=== PATIENT | female | born 1990 | race Caucasian/White ===

== ENCOUNTER → 2020-09-18 | Outpatient (REF) | payer OTHER ==
[2020-09-18 17:36] LABS: CHLAMYDIA DNA AMPLIFICATION NEGATIVE (NEGATIVE); GC DNA AMPLIFICATION NEGATIVE (NEGATIVE)
== END ==
LOC: M SFHCWAGY 14:53
PROVIDERS: ATTEND Nurse Practitioner Women's Health
DX: Z11.3 Encounter for screening for infections with a predominantly sexual mode of transmission (principal); Z12.4 Encounter for screening for malignant neoplasm of cervix; Z01.419 Encounter for gynecological examination (general) (routine) without abnormal findings

== ENCOUNTER 2020-09-27 13:57 | Emergency (ER) | payer OTHER ==
[~2020-09-27] VITALS: Ht 160 cm; Wt 79.0 kg
[2020-09-27] MEDS ORDERED: MULTTAB20 PO (14:07)
[2020-09-27] MEDS ORDERED: GI COCKTAIL 50ML BTL(HYOSCYAMINE/MAALOX/LIDOCAINE VISCOUS)(1:3:1) PO ONE (14:40)
[2020-09-27 14:53] LABS: BASO % 0.4 % (0.0-1.0); EOS # 0.2 10^3/uL (0.0-0.5); EOS % 1.9 % (0.0-3.0); HEMATOCRIT 38.9 % (36.0-47.0); HEMOGLOBIN 12.7 g/dl (12.0-15.5); LYMPH % 25.9 % (24.0-44.0); MEAN CORPUSCULAR HEMOGLOBIN 29.6 pg (27.0-33.0); MEAN CORPUSCULAR HGB CONC 32.6 g/dl (32.0-36.5); MEAN CORPUSCULAR VOLUME 90.7 fl (80.0-96.0); MONO # 0.3 10^3/uL (0.0-0.8); MONO % 4.3 % (2.0-8.0); NEUTROPHILS # 5.2 10^3/uL (1.5-8.5); NEUTROPHILS % 67.2 % (36.0-66.0); PLATELET COUNT, AUTOMATED 178 10^3/uL (150-450); RED BLOOD COUNT 4.29 10^6/uL (4.00-5.40); WHITE BLOOD COUNT 7.8 10^3/uL (4.0-10.0)
[2020-09-27 15:09] LABS: ALBUMIN 4.3 GM/DL (3.2-5.2); ALT/SGPT 18 U/L (12-78); BILIRUBIN,DIRECT 0.1 MG/DL (0.0-0.2); BILIRUBIN,TOTAL 0.6 MG/DL (0.2-1.0); CK-MB VALUE MASS < 1.0 NG/ML (<3.6); CPK CREATINE PHOSPHOKINASE 88 U/L (26-192); FREE T4 0.92 NG/DL (0.76-1.46); LIPASE 109 U/L (73-393); MB/CK RELATIVE INDEX 1.14 (< OR =4); TOTAL PROTEIN 7.4 GM/DL (6.4-8.2); TROPONIN I < 0.02 NG/ML (< 0.10)
--- NOTE | 2020-09-27 15:58 | REP ---
INDICATION: chest pain COMPARISON: None. TECHNIQUE: PA and lateral. FINDINGS: The mediastinum and cardiac silhouette are normal. The lung minor are clear and without acute consolidation, effusion, or pneumothorax. The skeletal structures are intact and normal. IMPRESSION: No acute cardiopulmonary process. <Electronically signed by Booker Lawson > 09/27/20 [id number]
--- NOTE | 2020-09-27 15:58 | REP ---
INDICATION: dizziness, blurred vision, r arm tingling COMPARISON: None. TECHNIQUE: Axial noncontrast images from the skull base to the vertex with coronal reformations. This CT examination was performed using the following dose reduction techniques: Automated exposure control, adjustment of mA and/or kv according to the patient's size, and use of iterative reconstruction technique. FINDINGS: The ventricles, sulci, and cisterns are normal in position and appearance. Larsen-white differentiation is maintained. No acute intracranial hemorrhage, mass/mass effect, pathology or trauma/injury. No evidence for acute infarction. No extra-axial fluid collection. Calvarium is intact. Paranasal sinuses and mastoid air cells are clear. IMPRESSION: Normal noncontrast head CT. No evidence for acute intracranial pathology or trauma/injury. <Electronically signed by Booker Lawson > 09/27/20 [id number]
--- NOTE | 2020-09-27 15:59 | REP ---
INDICATION: dizziness, blurred vision, r arm tingling COMPARISON: None. TECHNIQUE: Axial noncontrast images from the skull base to the thoracic inlet with coronal and sagittal re-formations This CT examination was performed using the following dose reduction techniques: Automated exposure control, adjustment of mA and/or kv according to the patient's size, and use of iterative reconstruction technique. FINDINGS: Normal alignment and lordosis is maintained. Cervical vertebral bodies including transverse processes and spinous processes are intact and there is no evidence for acute fracture / compression injury or subluxation. Spinal canal is patent. Posterior elements are intact. Paravertebral soft tissues are normal. IMPRESSION: Normal noncontrast cervical spine CT. No evidence for acute pathology or trauma/injury. <Electronically signed by Booker Lawson > 09/27/20 [id number]
[2020-09-27 16:33] VITALS: BP 124/65
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
== END 2020-09-27 16:40 | disposition home or self-care (01) ==
LOC: M ED 13:57
DX: R10.13 Epigastric pain (principal); R42 Dizziness and giddiness; R20.2 Paresthesia of skin; R10.31 Right lower quadrant pain; R06.02 Shortness of breath; K21.9 Gastro-esophageal reflux disease without esophagitis

== ENCOUNTER → 2020-12-02 | Outpatient (CLI) | payer OTHER ==
[~2020-12-02] MED LIST: MULTTAB20 PO
== END ==
LOC: M PLALAB 15:18
PROVIDERS: ATTEND Advanced Practice Midwife
DX: Z00.00 Encounter for general adult medical examination without abnormal findings (principal)

== ENCOUNTER → 2020-12-05 | Outpatient (CLI) | payer OTHER | LOC: M PLALAB 11:19 | PROVIDERS: ATTEND Advanced Practice Midwife | DX: O36.80X0 Pregnancy with inconclusive fetal viability, not applicable or unspecified (principal) ==

== ENCOUNTER → 2020-12-16 | Outpatient (CLI) | payer OTHER ==
[~2020-12-16] MED LIST changes: +ACET1TAB55 PO; +CYTO1TAB2 PO; +MISO200T56 VG; +PREN29CH2 PO
== END ==
LOC: M PLALAB 13:55
PROVIDERS: ATTEND Advanced Practice Midwife
DX: O03.9 Complete or unspecified spontaneous abortion without complication (principal)

== ENCOUNTER 2020-12-18 05:34 | Day surgery (SDC) | payer OTHER ==
[~2020-12-18] VITALS: Ht 160 cm; Wt 78.5 kg
[~2020-12-18 05:34] MED LIST changes: -ACET1TAB55 PO; -CYTO1TAB2 PO; -MISO200T56 VG; -PREN29CH2 PO
[2020-12-18] MEDS ORDERED: CYTO1TAB2 PO (05:44)
[2020-12-18] MEDS ORDERED: ONDANSETRON 4MG/2ML VIAL IV ONE (06:20)
[2020-12-18] MEDS ORDERED: MORPHINE 4 MG/ML 1ML VIAL/SYRINGE (J2270) IV ONE (06:20)
[2020-12-18] MEDS ORDERED: NS 1,000 ML IV ONE (06:20)
[2020-12-18 06:22] LABS: BASO % 0.3 % (0.0-1.0); EOS # 0.1 10^3/uL (0.0-0.5); EOS % 0.8 % (0.0-3.0); HEMATOCRIT 36.7 % (36.0-47.0); HEMOGLOBIN 12.1 g/dl (12.0-15.5); LYMPH # 1.3 10^3/uL (1.5-5.0); MEAN CORPUSCULAR HEMOGLOBIN 29.8 pg (27.0-33.0); MEAN CORPUSCULAR VOLUME 90.4 fl (80.0-96.0); MONO # 0.3 10^3/uL (0.0-0.8); MONO % 3.3 % (2.0-8.0); NEUTROPHILS # 6.2 10^3/uL (1.5-8.5); NEUTROPHILS % 78.3 % (36.0-66.0); PLATELET COUNT, AUTOMATED 182 10^3/uL (150-450); RED BLOOD COUNT 4.06 10^6/uL (4.00-5.40); WHITE BLOOD COUNT 7.9 10^3/uL (4.0-10.0)
[2020-12-18 07:13] LABS: ALT/SGPT 21 U/L (12-78); BILIRUBIN,DIRECT < 0.1 MG/DL (0.0-0.2); BILIRUBIN,TOTAL 0.3 MG/DL (0.2-1.0); HCG, SERUM QUANTITATIVE 36231 MIU/ML; LIPASE 106 U/L (73-393); TOTAL PROTEIN 7.6 GM/DL (6.4-8.2)
--- NOTE | 2020-12-18 08:51 | REPVR ---
PROCEDURE INFORMATION: Exam: US First Trimester, Transabdominal and US Duplex Artery or Vein, Ovaries, Limited Exam date and time: 12/18/2020 6:51 AM Age: 30 years old Clinical indication: Pain; Other: Vag bleeding; Gestational age or lmp: 8wks; ; Additional info: Vaginal bleeding TECHNIQUE: Imaging protocol: Real-time transabdominal obstetrical ultrasound of the maternal pelvis and a first trimester , less than 14 weeks 0 days, with image documentation. Real-time duplex ultrasound scan of the arterial or venous flow of the ovaries with B-mode, color Doppler flow and spectral waveform analysis, limited Duplex. COMPARISON: No relevant prior studies available. FINDINGS: Gestation: Single intrauterine gestational sac. Embryonic/ heart rate: No heart tones identified. Extra-embryonic membranes/Placenta: No demonstrated subchorionic hemorrhage. BIOMETRY: Gestational age (AUA): pole with crown lump length of 15.59 mm, corresponding to an estimated gestational age of 8 weeks 0 days. MATERNAL: Uterus: The uterus measures 11.9 x 5.7 x 7.3 cm. It is anteverted. Cervix: Not fully visualized or measured. Right adnexa: The right ovary measures 3.0 x 0.9 x 2.4 cm and appears unremarkable. There is internal arterial flow to the ovary. Peak systolic velocity 6.1 cm/s, end-diastolic velocity 2.9 cm/s, resistive index 0.53. Left adnexa: The left ovary measures 4.4 x 3.4 x 3.4 cm. It contains 2 mildly complex cysts measuring 2.5 x 2.3 x 1.8 cm and 3.0 x 2.3 x 2.6 cm. There is internal arterial flow to the ovary. Peak systolic velocity 24.5 cm/s, end-diastolic velocity 12.9 cm/s, resistive index 0.47. Intraperitoneal space: No demonstrated free fluid. IMPRESSION: 1. Single intrauterine gestation with estimated gestational age of 8 weeks 0 days. No heart tones identified, compatible with demise. 2. Two mildly complex left ovarian cysts, measuring up to 2.5 cm and 3.0 cm. 3. Internal arterial flow to both ovaries. Electronically signed by: Talib Tompkins On 12/18/2020 08:51:05 AM
[2020-12-18] MEDS ORDERED: MORPHINE 2 MG/ML 1ML VIAL (J2270) IV ONE (09:00)
[2020-12-18] MEDS ORDERED: ACET1TAB55 PO (10:14)
[2020-12-18] MEDS ORDERED: PREN29CH2 PO (10:14)
[2020-12-18] MEDS ORDERED: MISO200T56 VG (10:14)
[2020-12-18] MEDS ORDERED: DOXYCYCLINE HYCLATE 100MG TABLET PO ONE (11:00)
[2020-12-18] MEDS ORDERED: KETOROLAC 30 MG/ML 1ML VIAL IV ONE (11:10)
[2020-12-18] MEDS ORDERED: propofoL 200 MG/20 ML VIAL As Ordered ONE (15:13)
[2020-12-18] MEDS ORDERED: fentaNYL 100 MCG/2 ML INJECTION (J3010) As Ordered ONE (15:13)
[2020-12-18] MEDS ORDERED: LIDOCAINE 2% 100MG/5ML SDV (FOR ANES.) As Ordered ONE (15:13)
[2020-12-18] MEDS ORDERED: MIDAZOLAM INJ 2MG/2ML VIAL (J2250 PER 1MG) As Ordered ONE (15:14)
--- NOTE | 2020-12-18 16:30 | ROOPDOC ---
[facility] Report Of Operation Report of Operation DATE OF PROCEDURE: 12/18/20 PREOPERATIVE DIAGNOSIS: Intrauterine embryonic demise. POSTOPERATIVE DIAGNOSES: Intrauterine embryonic demise. PROCEDURE PERFORMED: Dilation with suction and sharp curettage. SURGEON: Josie Howell MD RN VASCULAR: None. ANESTHESIA: [General]. ESTIMATED BLOOD LOSS [100] mL. INTRAVENOUS FLUIDS: 800 mL. URINE OUTPUT: Not obtained. PREOPERATIVE ANTIBIOTICS: 200 mg of doxycycline. OPERATIVE FINDINGS: Moderate amounts of tissue obtained with suction curetting. SPECIMENS: Intrauterine contents. DESCRIPTION OF OPERATION: After informed consent was obtained and written consent was reviewed, the patient was brought to the operating room where she was placed under general anesthesia. She was then placed in lithotomy position and was prepped and draped in a normal sterile fashion. A time-out in the operating room was then performed identifying the patient, procedure to be performed as well as drug allergies. A bivalve speculum was then placed revealing the cervix. The anterior lip of the cervix was grasped with a single-tooth tenaculum. The uterus then sounded to [10] cm. The uterus was then sequentially dilated using Hanks dilators. A #[10] curved curette was then advanced through the cervical os to the level of the fundus. It was attached to suction, suction was deployed, and the uterus was curetted in a 360-degree fashion with three passes with moderate amounts of tissue obtained. Sharp curette was then advanced through the cervical, and the uterus was sharply curetted in a 360-degree fashion. A final pass with the suction curette was performed productive of just minimum amounts of blood. Instruments were then removed from the patient's vagina. Single-tooth tenaculum was removed. Tenaculum sites were noted to be hemostatic. Speculum was removed. The patient was then taken out of the lithotomy position and was awakened from anesthesia and taken to recovery in stable condition. Counts were correct. JOSIE HOWELL MD. Dec 18, 2020 16:30
[2020-12-18] MEDS ORDERED: KETOROLAC 60MG 2ML VIAL As Ordered ONE (16:40)
[2020-12-18] MEDS ORDERED: ACETAMINOPHEN 1000MG 100ML IV BTL (OFIRMEV) (J0131 PER 10MG) As Ordered ONE (16:40)
[2020-12-18] MEDS ORDERED: METOCLOPRAMIDE INJ 10MG/2ML VIAL (J2765 PER 1) As Ordered ONE (16:40)
[2020-12-18] MEDS ORDERED: ONDANSETRON 4MG/2ML VIAL As Ordered ONE (16:40)
[2020-12-18] MEDS ORDERED: dexameTHASONE 4 MG/ML 1ML VIAL (J1100 PER 1MG) As Ordered ONE (16:40)
[2020-12-18] MEDS ORDERED: KETOROLAC 30 MG/ML 1ML VIAL IV PRN (16:51)
[2020-12-18] MEDS ORDERED: ONDANSETRON 4MG/2ML VIAL IV PRN (17:55)
[2020-12-18] MEDS ORDERED: oxyCODONE 5MG TAB PO PRN (17:55)
[2020-12-18] MEDS ORDERED: LR 1,000 ML IV SCH (17:55)
[2020-12-18] MEDS ORDERED: MEPERIDINE INJ 25 MG/ML VIAL (J2175) IV PRN (17:55)
[2020-12-18] MEDS ORDERED: fentaNYL 100 MCG/2 ML INJECTION (J3010) IV PRN (17:55)
[2020-12-18 18:35] VITALS: BP 107/60
[2020-12-18] MEDS ORDERED: KETOROLAC 30 MG/ML 1ML VIAL IV SCH (22:50)
== END 2020-12-18 18:35 | disposition home or self-care (01) ==
LOC: M ED 05:34 → M SDC 10:27
PROVIDERS: ATTEND Social Worker
DX: O02.1 Missed abortion (principal); N83.292 Other ovarian cyst, left side; Z88.0 Allergy status to penicillin
CPT/HCPCS: 59820; 76801; 80047; 80076; 83690; 84702; 85025; 86850; 86900; 86901; 88305; 93041; 93976; 96361; 96374; 96375; 96376; 99285; J0131; J1100; J1885; J2250; J2270; J2405; J2765; J3010; U0002

== ENCOUNTER → 2021-05-26 | Outpatient (CLI) | payer OTHER ==
[~2021-05-26] MED LIST changes: +ACET1TAB55 PO; +CYTO1TAB2 PO; +MISO200T56 VG; +PREN29CH2 PO
== END ==
LOC: M PLALAB 14:28
PROVIDERS: ATTEND Advanced Practice Midwife
DX: O20.0 Threatened abortion (principal)

== ENCOUNTER → 2021-05-28 | Outpatient (CLI) | payer OTHER | LOC: M PLALAB 12:46 | PROVIDERS: ATTEND Advanced Practice Midwife | DX: O20.0 Threatened abortion (principal) ==

== ENCOUNTER → 2021-07-07 | Outpatient (CLI) | payer OTHER | LOC: M PLALAB 13:20 | PROVIDERS: ATTEND Advanced Practice Midwife | DX: O34.211 Maternal care for low transverse scar from previous cesarean delivery (principal) ==

== ENCOUNTER 2021-07-10 16:46 | Emergency (ER) | payer OTHER ==
[~2021-07-10] VITALS: Ht 160 cm; Wt 86.6 kg
[2021-07-10 18:44] LABS: BASO % 0.2 % (0.0-1.0); EOS # 0.1 10^3/uL (0.0-0.5); EOS % 1.2 % (0.0-3.0); HEMATOCRIT 37.2 % (36.0-47.0); HEMOGLOBIN 12.5 g/dl (12.0-15.5); LYMPH # 1.8 10^3/uL (1.5-5.0); MEAN CORPUSCULAR HEMOGLOBIN 29.3 pg (27.0-33.0); MEAN CORPUSCULAR HGB CONC 33.6 g/dl (32.0-36.5); MEAN CORPUSCULAR VOLUME 87.1 fl (80.0-96.0); MONO # 0.3 10^3/uL (0.0-0.8); MONO % 3.7 % (2.0-8.0); NEUTROPHILS # 6.6 10^3/uL (1.5-8.5); NEUTROPHILS % 74.6 % (36.0-66.0); PLATELET COUNT, AUTOMATED 192 10^3/uL (150-450); RED BLOOD COUNT 4.27 10^6/uL (4.00-5.40); WHITE BLOOD COUNT 8.9 10^3/uL (4.0-10.0)
[2021-07-10 19:21] LABS: APPEARANCE, URINE HAZY (CLEAR); BACTERIA, URINE AUTO NEGATIVE (NEGATIVE); BILIRUBIN, URINE AUTO NEGATIVE (NEGATIVE); BLOOD, URINE BLOOD NEGATIVE (NEGATIVE); COLOR, URINE YELLOW (YELLOW); GLUCOSE, URINE (UA) AUTO NEGATIVE (NEGATIVE); KETONE, URINE AUTO NEGATIVE (NEGATIVE); LEUKOCYTE ESTERASE, URINE AUTO NEGATIVE (NEGATIVE); MUCUS, URINE SMALL (NEGATIVE); NITRITE, URINE AUTO NEGATIVE (NEGATIVE); PROTEIN, URINE AUTO NEGATIVE (NEGATIVE); RBC, URINE AUTO 0 /HPF (0-3); SPECIFIC GRAVITY URINE AUTO 1.027 (1.002-1.035); SQUAMOUS EPITHELIAL CELL UR AU 9 /HPF (0-6); UROBILINOGEN, URINE AUTO 0.2 mg/dL (0.0-2.0); WBC, URINE AUTO 0 /HPF (0-3)
[2021-07-10] MEDS ORDERED: ONDANSETRON 4MG/2ML VIAL IV ONE (19:35)
[2021-07-10] MEDS ORDERED: ACETAMINOPHEN 325 MG TAB PO ONE (19:35)
[2021-07-10 19:57] LABS: ALBUMIN 3.6 GM/DL (3.2-5.2); ALT/SGPT 20 U/L (12-78); BILIRUBIN,DIRECT < 0.1 MG/DL (0.0-0.2); BILIRUBIN,TOTAL 0.3 MG/DL (0.2-1.0); HCG, SERUM QUANTITATIVE 47976 MIU/ML; LIPASE 118 U/L (73-393); TOTAL PROTEIN 7.7 GM/DL (6.4-8.2)
[2021-07-10] MEDS ORDERED: KETOROLAC 30 MG/ML 1ML VIAL IV ONE (20:35)
[2021-07-10 20:39] VITALS: BP 128/64
== END 2021-07-10 20:48 | disposition home or self-care (01) ==
LOC: M ED 16:46
DX: O34.81 Maternal care for other abnormalities of pelvic organs, first trimester (principal); N83.292 Other ovarian cyst, left side; O21.9 Vomiting of pregnancy, unspecified; Z3A.13 13 weeks gestation of pregnancy; Z88.0 Allergy status to penicillin
CPT/HCPCS: 76775; 76801; 80047; 80076; 81001; 83690; 84702; 85025; 87086; 96374; 96375; 99284; J1885; J2405

== ENCOUNTER → 2021-07-14 | Outpatient (CLI) | payer OTHER | LOC: M PLALAB 10:10 | PROVIDERS: ATTEND Obstetrics & Gynecology | DX: Z34.81 Encounter for supervision of other normal pregnancy, first trimester (principal) ==

== ENCOUNTER → 2021-09-01 | Outpatient (CLI) | payer OTHER | LOC: M WHC 08:36 | PROVIDERS: ATTEND Obstetrics & Gynecology | DX: Z34.92 Encounter for supervision of normal pregnancy, unspecified, second trimester (principal) ==

== ENCOUNTER → 2021-10-07 | Outpatient (CLI) | payer OTHER | LOC: M WHC 13:04 | PROVIDERS: ATTEND Advanced Practice Midwife | DX: O34.211 Maternal care for low transverse scar from previous cesarean delivery (principal) ==

== ENCOUNTER → 2021-10-22 | Outpatient (CLI) | payer OTHER | LOC: M WHC 09:38 | PROVIDERS: ATTEND Advanced Practice Midwife | DX: O34.211 Maternal care for low transverse scar from previous cesarean delivery (principal) ==

== ENCOUNTER → 2021-10-28 | Outpatient (CLI) | payer OTHER ==
[2021-10-28 13:26] LABS: HEMATOCRIT 32.5 % (36.0-47.0); HEMOGLOBIN 10.5 g/dl (12.0-15.5); MEAN CORPUSCULAR HEMOGLOBIN 29.4 pg (27.0-33.0); MEAN CORPUSCULAR HGB CONC 32.3 g/dl (32.0-36.5); PLATELET COUNT, AUTOMATED 143 10^3/uL (150-450); RED BLOOD COUNT 3.57 10^6/uL (4.00-5.40); WHITE BLOOD COUNT 8.6 10^3/uL (4.0-10.0)
== END ==
LOC: M PLALAB 09:29
PROVIDERS: ATTEND Advanced Practice Midwife
DX: O34.211 Maternal care for low transverse scar from previous cesarean delivery (principal)

== ENCOUNTER → 2021-12-16 | Outpatient (REF) | payer OTHER | LOC: M PLALAB 15:58 | PROVIDERS: ATTEND Obstetrics & Gynecology | DX: O34.211 Maternal care for low transverse scar from previous cesarean delivery (principal) ==

== ENCOUNTER → 2021-12-23 | Outpatient (CLI) | payer OTHER ==
[2021-12-23 17:03] LABS: HEMATOCRIT 34.5 % (36.0-47.0); HEMOGLOBIN 11.3 g/dl (12.0-15.5); MEAN CORPUSCULAR HEMOGLOBIN 29.3 pg (27.0-33.0); MEAN CORPUSCULAR HGB CONC 32.8 g/dl (32.0-36.5); MEAN CORPUSCULAR VOLUME 89.4 fl (80.0-96.0); PLATELET COUNT, AUTOMATED 145 10^3/uL (150-450); RED BLOOD COUNT 3.86 10^6/uL (4.00-5.40); WHITE BLOOD COUNT 8.1 10^3/uL (4.0-10.0)
== END ==
LOC: M PLALAB 14:39
PROVIDERS: ATTEND Advanced Practice Midwife
DX: O34.211 Maternal care for low transverse scar from previous cesarean delivery (principal); Z3A.00 Weeks of gestation of pregnancy not specified

== ENCOUNTER → 2022-01-07 | Outpatient (CLI) | payer OTHER ==
[~2022-01-07] MED LIST changes: +IRON27TA2 PO
== END ==
LOC: M LABSMTC 11:12
PROVIDERS: ATTEND Anesthesiology
DX: Z01.812 Encounter for preprocedural laboratory examination (principal); Z20.822 Contact with and (suspected) exposure to COVID-19

== ENCOUNTER 2022-01-12 07:10 | Inpatient (IN) | payer OTHER ==
[~2022-01-12] VITALS: Ht 160 cm; Wt 103.3 kg
[2022-01-12] VITALS (7 sets, daily range): BP systolic 116–137; BP diastolic 58–83
[2022-01-12] MEDS ORDERED: LACTATED RINGER'S 1000 ML IV STA (07:36)
[2022-01-12] MEDS ORDERED: BICITRA 30ML SOLN UDC PO ONE (07:40)
[2022-01-12] MEDS ORDERED: CLINDAMYCIN 900 MG in IV 1 EA IV ONE (07:40)
[2022-01-12] MEDS ORDERED: LR 1,000 ML IV SCH (07:40)
[2022-01-12] MEDS ORDERED: HOME MED LIST COMPLETE! XX SCH (08:00)
[2022-01-12 08:11] LABS: HEMATOCRIT 34.3 % (36.0-47.0); HEMOGLOBIN 11.4 g/dl (12.0-15.5); MEAN CORPUSCULAR HEMOGLOBIN 29.6 pg (27.0-33.0); MEAN CORPUSCULAR HGB CONC 33.2 g/dl (32.0-36.5); MEAN CORPUSCULAR VOLUME 89.1 fl (80.0-96.0); PLATELET COUNT, AUTOMATED 141 10^3/uL (150-450); RED BLOOD COUNT 3.85 10^6/uL (4.00-5.40); WHITE BLOOD COUNT 8.4 10^3/uL (4.0-10.0)
[2022-01-12] MEDS: PRENATAL VITAMINS CHEWABLE TABLET PO SCH (09:00)
[2022-01-12] MEDS ORDERED: ePHEDrine SULFATE 25 MG/5 ML(5MG/ML) SYRINGE As Ordered ONE (10:00)
[2022-01-12] MEDS ORDERED: MORPHINE PRES-FREE INJ 10 MG/10 ML VIAL As Ordered ONE (10:00)
[2022-01-12] MEDS ORDERED: OXYTOCIN 30 UNITS IN 0.9% NaCl 500ML IV BAG (J2590) As Ordered ONE ×2 (10:00→11:53)
[2022-01-12] MEDS ORDERED: PHENYLephrine 500MCG 5ML (100MCG/ML) SYRINGE As Ordered ONE (10:01)
[2022-01-12] MEDS ORDERED: ceFAZolin SOD 2 GM in IV 1 EA IV ONE (10:05)
[2022-01-12] MEDS: SLF 3 ML SYR IV SCH ×2 (11:05→19:05)
[2022-01-12] MEDS ORDERED: NALOXONE INJ 0.4MG/1ML VIAL (J2310 PER 1MG) IV PRN ×2 (11:05)
[2022-01-12] MEDS ORDERED: HYDROMORPHONE HCL 0.5 MG/ 0.5 ML SYRINGE (J1170 PER 1) IV PRN (11:05)
[2022-01-12] MEDS ORDERED: METOCLOPRAMIDE INJ 10MG/2ML VIAL (J2765 PER 1) IV PRN (11:05)
[2022-01-12] MEDS ORDERED: **NOTE PATIENT COMMENT** MISC XX SCH (11:05)
[2022-01-12] MEDS ORDERED: MEPERIDINE INJ 25 MG/ML VIAL (J2175) IV PRN (11:05)
[2022-01-12] MEDS ORDERED: fentaNYL 100 MCG/2 ML INJECTION IV PRN (11:05)
[2022-01-12] MEDS ORDERED: oxyCODONE 5MG TAB PO PRN (11:05)
[2022-01-12] MEDS ORDERED: diphenhydrAMINE 50MG/ML VIAL (J1200) IV PRN (11:05)
[2022-01-12] MEDS ORDERED: ONDANSETRON 4MG 2ML VIAL IV PRN ×2 (11:05→13:00)
[2022-01-12] MEDS ORDERED: ONDANSETRON 4MG 2ML VIAL As Ordered ONE (11:21)
[2022-01-12] MEDS ORDERED: KETOROLAC 60MG 2ML VIAL As Ordered ONE (11:21)
[2022-01-12] MEDS ORDERED: RHOGAM 300 MCG (1500 IU) INJ (J2790) IM SCH (11:45)
[2022-01-12] MEDS ORDERED: SIMETHICONE 80MG CHEW TAB PO PRN (11:45)
[2022-01-12] MEDS ORDERED: OXYTOCIN DRIP 30 UNITS in IV 1 EA IV ONE (11:45)
[2022-01-12] MEDS ORDERED: diphenhydrAMINE 50MG/ML VIAL (J1200) As Ordered ONE (12:21)
[2022-01-12] MEDS ORDERED: PERCOCET 5MG/325MG TAB PO PRN (13:00)
[2022-01-12] MEDS: LR 1,000 ML IV SCH (16:07)
[2022-01-12] MEDS: KETOROLAC 30 MG/ML 1ML VIAL IV SCH ×2 (17:34→22:57)
[2022-01-13] MEDS: LR 1,000 ML IV SCH (00:09)
[2022-01-13 02:00] VITALS: BP 132/67
[2022-01-13] MEDS: SLF 3 ML SYR IV SCH (03:05)
[2022-01-13] MEDS: KETOROLAC 30 MG/ML 1ML VIAL IV SCH (04:57)
[2022-01-13 06:00] VITALS: BP 116/58
[2022-01-13] MEDS ORDERED: OXYC1TAB23 PO (06:30)
[2022-01-13] MEDS ORDERED: IBUP80TA PO (06:30)
[2022-01-13 06:56] LABS: HEMATOCRIT 27.3 % (36.0-47.0); MEAN CORPUSCULAR HEMOGLOBIN 30.2 pg (27.0-33.0); MEAN CORPUSCULAR VOLUME 91.6 fl (80.0-96.0); RED BLOOD COUNT 2.98 10^6/uL (4.00-5.40)
[2022-01-13 07:27] LABS: PLATELET COUNT, AUTOMATED 98 10^3/uL (150-450)
[2022-01-13] MEDS: PERCOCET 5MG/325MG TAB PO PRN (08:12)
[2022-01-13] MEDS: PRENATAL VITAMINS CHEWABLE TABLET PO SCH (08:13)
[2022-01-13 10:00] VITALS: BP 115/58
[2022-01-13] MEDS: IBUPROFEN 800 MG TAB PO SCH ×2 (13:20→21:30)
[2022-01-13 14:00] VITALS: BP 113/56
[2022-01-13 18:00] VITALS: BP 120/63
[2022-01-13 22:00] VITALS: BP 110/49
[2022-01-14 02:19] VITALS: BP 114/56
[2022-01-14] MEDS: IBUPROFEN 800 MG TAB PO SCH ×2 (05:59→13:28)
[2022-01-14 06:24] VITALS: BP 119/61
[2022-01-14] MEDS ORDERED: MEASLES,MUMPS,RUBELLA VACCINE INJ (MMR-II) (90707) SC.IMMUN ONE (09:00)
[2022-01-14] MEDS: PRENATAL VITAMINS CHEWABLE TABLET PO SCH (09:22)
[2022-01-14 10:00] VITALS: BP 125/87
[2022-01-14] MEDS: PERCOCET 5MG/325MG TAB PO PRN (10:53)
== END 2022-01-14 13:59 | disposition home or self-care (01) | DRG 773 ==
LOC: M LDI 07:10 → M OBS 13:45
PROVIDERS: ADMIT Specialist; ATTEND Specialist
PROC: 10D00Z1 Extraction of Products of Conception, Low, Open Approach (ICD-10-PCS; principal; 2022-01-12 09:30)
DX: O34.211 Maternal care for low transverse scar from previous cesarean delivery (principal); Z3A.40 40 weeks gestation of pregnancy; Z37.0 Single live birth; Z88.0 Allergy status to penicillin; Z91.040 Latex allergy status

== ENCOUNTER → 2024-10-22 | Outpatient (CLI) | payer OTHER ==
[~2024-10-22] MED LIST changes: +CYTO100T2 PO; -CYTO1TAB2 PO; +IBUP80TA PO; -MISO200T56 VG; +MISO200T83 VG; +OXYC1TAB23 PO
[2024-10-22 09:51] LABS: BASO % 0.5 % (0.0-1.0); EOS # 0.2 10^3/uL (0.0-0.5); EOS % 2.9 % (0.0-3.0); HEMATOCRIT 39.2 % (36.0-47.0); HEMOGLOBIN 12.5 g/dl (12.0-15.5); LYMPH # 2.1 10^3/uL (1.5-5.0); MEAN CORPUSCULAR HEMOGLOBIN 28.9 pg (27.0-33.0); MEAN CORPUSCULAR HGB CONC 31.9 g/dl (32.0-36.5); MEAN CORPUSCULAR VOLUME 90.7 fl (80.0-96.0); MONO # 0.3 10^3/uL (0.0-0.8); MONO % 4.9 % (2.0-8.0); NEUTROPHILS # 3.3 10^3/uL (1.5-8.5); NEUTROPHILS % 55.4 % (36.0-66.0); PLATELET COUNT, AUTOMATED 209 10^3/uL (150-450); RED BLOOD COUNT 4.32 10^6/uL (4.00-5.40); WHITE BLOOD COUNT 5.9 10^3/uL (4.0-10.0)
[2024-10-22 10:01] LABS: INR 1.02; PARTIAL THROMBOPLASTIN TIME 27.8 SECONDS (24.8-34.2); PROTHROMBIN TIME 13.7 SECONDS (12.5-14.5)
[2024-10-22 10:14] LABS: ALBUMIN 4.2 G/DL (3.2-5.2); ALKALINE PHOSPHATASE 78 U/L (35-104); ALT/SGPT 20 U/L (7.0-40); AST/SGOT 17 U/L (<34); BILIRUBIN,TOTAL 0.6 MG/DL (0.3-1.2); BLOOD UREA NITROGEN 14 MG/DL (9-23); CALCIUM LEVEL 9.3 MG/DL (8.5-10.1); CARBON DIOXIDE LEVEL 29 MMOL/L (20-31); CHLORIDE LEVEL 106 MMOL/L (98-107); CHOLESTEROL LEVEL 163 MG/DL (<200); CHOLESTEROL RISK RATIO 3.34 (<5); CREATININE FOR GFR 0.64 MG/DL (0.55-1.30); GLOMERULAR FILTRATION RATE > 90.0 (>60); GLUCOSE, FASTING 88 MG/DL (60-100); HDL CHOLESTEROL 48.8 MG/DL (>40); LDL CHOLESTEROL 101.2 MG/DL (<100); NON-HDL-C 114.2 MG/DL; POTASSIUM SERUM 4.5 MMOL/L (3.5-5.1); SODIUM LEVEL 143 MMOL/L (136-145); TOTAL PROTEIN 7.7 G/DL (5.7-8.2); TRIGLYCERIDES LEVEL 65 MG/DL (<150)
[2024-10-22 10:16] LABS: THYROID STIMULATING HORMONE 1.563 uIU/ML (0.55-4.78)
== END ==
LOC: M PLALAB 08:59
PROVIDERS: ATTEND Nurse Practitioner Family
DX: R04.0 Epistaxis (principal)

== ENCOUNTER 2025-01-09 16:28 | Emergency (ER) | payer OTHER ==
[~2025-01-09] VITALS: Ht 160 cm; Wt 93.5 kg
[2025-01-09 16:30] VITALS: BP 140/82; TEMP 97.3; O2SAT 98
[2025-01-09] MEDS: LIDOCAINE 5% PATCH TD ONE (19:01)
[2025-01-09] MEDS: ACETAMINOPHEN 500 MG TAB PO ONE (19:01)
== END 2025-01-09 19:45 | disposition left against medical advice (07) ==
LOC: M ED 16:28
DX: M54.50 Low back pain, unspecified (principal); Z88.0 Allergy status to penicillin; Z91.040 Latex allergy status; Z79.1 Long term (current) use of non-steroidal anti-inflammatories (NSAID); Z79.899 Other long term (current) drug therapy; Z79.810 Long term (current) use of selective estrogen receptor modulators (SERMs); Z53.9 Procedure and treatment not carried out, unspecified reason

== ENCOUNTER → 2025-04-02 | Outpatient (CLI) | payer OTHER | LOC: M RAD 09:56 | PROVIDERS: ATTEND Specialist | DX: N80.6 Endometriosis in cutaneous scar (principal) ==